=== PATIENT | female | born 1965 | race Two or more races ===

== ENCOUNTER 2017-09-07 08:44 | Emergency (ER) | payer OTHER ==
--- NOTE | 2017-09-07 09:16 | ER Document Report ---
ED Medical Screen (RME) - General TRAVEL OUTSIDE OF THE [place] 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 Patient states that she does have feelings of dyspnea when she takes a deep breath and because she feels like she has dryness in her throat. Patient states that the pain does not radiate. She has not noticed anything that makes the pain worse including p.o. intake. She does not take any medications daily. Denies any drug allergies, smoking, IV drug use, cancer history, prolonged immobilization, distance travel, recent surgery/trauma, hormone use, or previous DVT/PE. Denies any cardiac medical history. Patient states that she is still urinating normally and having normal bowel movements. No diaphoresis. Denies any headache, fever, neck pain, URI, sore throat, palpitations, syncope , cough, wheeze, abdominal pain, nausea/vomiting/diarrhea, urinary retention, dysuria, hematuria, loss of control of bowel or bladder, numbness/tingling, or rash. (CLAUDIA CASTELLANO) - Related Data Allergies/Adverse Reactions: No Known Allergies Allergy (Unverified 09/07/17 08:49) Past Medical History - Social History Family history: Reviewed & Not Pertinent <CLAUDIA CASTELLANO - Last Filed: 09/07/17 10:00> Review of Systems - Review of Systems -: Yes All other systems reviewed and negative <CLAUDIA CASTELLANO - Last Filed: 09/07/17 10:00> Physical Exam <MIRIAM HERNANDEZ - Last Filed: 09/07/17 09:15> <CLAUDIA CASTELLANO - Last Filed: 09/07/17 10:00> - Vital signs Vitals: Temp Pulse Resp BP Pulse Ox 98.5 F 90 20 149/81 H 100 09/07/17 08:51 09/07/17 08:51 09/07/17 08:51 09/07/17 08:51 09/07/17 08:51 - Notes Notes: PHYSICAL EXAMINATION: GENERAL: Well-appearing, well-nourished and in no acute distress. HEAD: Atraumatic, normocephalic. EYES: Pupils equal round and reactive to light, extraocular movements intact, sclera anicteric, conjunctiva are normal. ENT: Nares patent and without discharge. oropharynx clear without exudates. No tonsilar hypertrophy or erythema. Moist mucous membranes. NECK: Normal range of motion, supple without lymphadenopathy Chest: + reproducible tenderness to the inferior sternal area. No flail chest. LUNGS: Breath sounds clear to auscultation bilaterally and equal. No wheezes rales or rhonchi. HEART: Regular rate and rhythm without murmurs, rubs, gallops. ABDOMEN: Soft, nontender, nondistended abdomen. No guarding, no rebound. No masses appreciated. Normal bowel sounds present. No CVA tenderness bilaterally. Musculoskeletal: FROM to passive/active. Strength 5+/5. Blanka neg. No asymmetry Extremities: No cyanosis, clubbing, or edema b/l. Peripheral pulses 2+. Capillary refill less than 3 seconds. NEUROLOGICAL: Normal speech, normal gait. PSYCH: Normal mood, normal affect. SKIN: Warm, Dry, normal turgor, no rashes or lesions noted. (CLAUDIA CASTELLANO) - Vital Signs Vital signs: Temp Pulse Resp BP Pulse Ox 98.5 F 90 20 149/81 H 100 09/07/17 08:51 09/07/17 08:51 09/07/17 08:51 09/07/17 08:51 09/07/17 08:51 Doctor's Discharge <MIRIAM HERNANDEZ - Last Filed: 09/07/17 09:15> <CLAUDIA CASTELLANO - Last Filed: 09/07/17 10:00> - Discharge Referrals: CAROLINE DUNNE PA-C [Primary Care Provider] - Follow up as needed
[2017-09-07 10:05] LABS: ABSOLUTE LYMPHOCYTES (AUTO) 1.9 10^3/uL (0.5-4.7); ABSOLUTE MONOCYTES (AUTO) 0.4 10^3/uL (0.1-1.4); ABSOLUTE NEUT (AUTO) 3.6 10^3/uL (1.7-8.2); BASOPHILS % (AUTO) 0.5 % (0-2); EOSINOPHILS % (AUTO) 0.5 % (0-6); HEMATOCRIT 43.2 % (36.0-47.0); HEMOGLOBIN 14.5 g/dL (12.0-15.5); LYMPHOCYTES % (AUTO) 31.8 % (13-45); MEAN CORPUSCULAR HGB CONC 33.5 g/dL (32.0-36.0); MEAN CORPUSCULAR VOLUME 87 fl (80-97); MONOCYTES % (AUTO) 6.3 % (3-13); PLATELET COUNT 263 10^3/uL (150-450); RED CELL DISTRIBUTION WIDTH 12.7 % (11.5-14.0); SEGMENTED NEUTROPHILS % (AUTO) 60.9 % (42-78); TOTAL CELLS COUNTED % (AUTO) 100 %; WHITE BLOOD COUNT 5.9 10^3/uL (4.0-10.5)
--- NOTE | 2017-09-07 10:14 | RADIOLOGY REPORT (SQ) ---
EXAM DESCRIPTION: CHEST SINGLE VIEW COMPLETED DATE/TIME: 09/07/2017 9:57 am REASON FOR STUDY: sob COMPARISON: None. EXAM PARAMETERS: NUMBER OF VIEWS: One view. TECHNIQUE: Single frontal radiographic view of the chest acquired. RADIATION DOSE: NA LIMITATIONS: None. FINDINGS: LUNGS AND PLEURA: No opacities, masses or pneumothorax. No pleural effusion. MEDIASTINUM AND HILAR STRUCTURES: No masses. Contour normal. HEART AND VASCULAR STRUCTURES: Heart normal in size. Normal vasculature. BONES: No acute findings. HARDWARE: None in the chest. OTHER: No other significant finding. IMPRESSION: NO ACUTE RADIOGRAPHIC FINDING IN THE CHEST. TECHNICAL DOCUMENTATION: JOB ID: [id number] [employer]- All Rights Reserved Reading location - IP/workstation name: [email or web address]
[2017-09-07 10:29] LABS: ALANINE AMINOTRANSFERASE 28 U/L (9-52); ALBUMIN 4.2 g/dL (3.5-5.0); ALKALINE PHOSPHATASE 52 U/L (38-126); ANION GAP 12 (5-19); ASPARTATE AMINO TRANSFERASE 39 U/L (14-36); BILIRUBIN,DIRECT 0.2 mg/dL (0.0-0.4); BILIRUBIN,TOTAL 1.4 mg/dL (0.2-1.3); BLOOD UREA NITROGEN 14 mg/dL (7-20); CALCIUM 9.5 mg/dL (8.4-10.2); CARBON DIOXIDE 22 mmol/L (22-30); CHLORIDE 110 mmol/L (98-107); CREATINE KINASE 115 U/L (30-135); GLUCOSE 116 mg/dL (75-110); POTASSIUM 3.7 mmol/L (3.6-5.0); SODIUM 143.6 mmol/L (137-145); TOTAL PROTEIN 7.2 g/dL (6.3-8.2)
[2017-09-07 10:41] LABS: CREATINE KINASE MB 1.91 ng/mL (<4.55)
[2017-09-07 10:46] LABS: TROPONIN I < 0.012 ng/mL
[2017-09-07] MEDS ORDERED: LIDOCAINE 5% (700 MG) TRANSDERMAL ADH..PATCH TP ONE (11:59)
[2017-09-07] MEDS ORDERED: KETOROLAC TROMETHAMINE INJ/PF 30 MG/1 ML SDV IV ONE (12:00)
[2017-09-07] MEDS ORDERED: LORAZEPAM INJ 2 MG/1 ML VIAL IV ONE (12:00)
--- NOTE | 2017-09-07 12:11 | ER Document Report ---
ED General - General Chief Complaint: Shortness Of Breath Stated Complaint: NECK PAIN, TINGLING FEELING IN BODY Time Seen by Provider: 09/07/17 09:16 TRAVEL OUTSIDE OF THE [place] 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 Patient states that she does have feelings of dyspnea when she takes a deep breath and because she feels like she has dryness in her throat. Patient states that the pain does not radiate. She has not noticed anything that makes the pain worse including p.o. intake. She does not take any medications daily. Denies any drug allergies, smoking, IV drug use, cancer history, prolonged immobilization, distance travel, recent surgery/trauma, hormone use, or previous DVT/PE. Denies any cardiac medical history. Patient states that she is still urinating normally and having normal bowel movements. No diaphoresis. Denies any headache, fever, neck pain, URI, sore throat, palpitations, syncope, cough, wheeze, abdominal pain, nausea/vomiting/diarrhea, urinary retention, dysuria, hematuria, loss of control of bowel or bladder, numbness/tingling, or rash. - Related Data Allergies/Adverse Reactions: No Known Allergies Allergy (Unverified 09/07/17 08:49) Past Medical History - Social History Smoking Status: Never Smoker Chew tobacco use (# tins/day): No Frequency of alcohol use: None Drug Abuse: None Family History: Reviewed & Not Pertinent Patient has suicidal ideation: No Patient has homicidal ideation: No Renal/ Medical History: Denies: Hx Peritoneal Dialysis Review of Systems - Review of Systems -: Yes All other systems reviewed and negative Physical Exam - Vital signs Vitals: Temp Pulse Resp BP Pulse Ox 98.5 F 90 20 149/81 H 100 09/07/17 08:51 09/07/17 08:51 09/07/17 08:51 09/07/17 08:51 09/07/17 08:51 - Notes Notes: PHYSICAL EXAMINATION: GENERAL: Well-appearing, well-nourished and in no acute distress. HEAD: Atraumatic, normocephalic. EYES: Pupils equal round and reactive to light, extraocular movements intact, sclera anicteric, conjunctiva are normal. ENT: Nares patent and without discharge. oropharynx clear without exudates. No tonsilar hypertrophy or erythema. Moist mucous membranes. NECK: Normal range of motion, supple without lymphadenopathy Chest: + reproducible tenderness to the inferior sternal area. No flail chest. LUNGS: Breath sounds clear to auscultation bilaterally and equal. No wheezes rales or rhonchi. HEART: Regular rate and rhythm without murmurs, rubs, gallops. ABDOMEN: Soft, nontender, nondistended abdomen. No guarding, no rebound. No masses appreciated. Normal bowel sounds present. No CVA tenderness bilaterally. Musculoskeletal: FROM to passive/active. Strength 5+/5. Blanka neg. No asymmetry Extremities: No cyanosis, clubbing, or edema b/l. Peripheral pulses 2+. Capillary refill less than 3 seconds. NEUROLOGICAL: Normal speech, normal gait. PSYCH: anxious, normal affect. SKIN: Warm, Dry, normal turgor, no rashes or lesions noted. Course - Re-evaluation Re-evalutation: 09/07/17 14:00 Patient is an afebrile, well-hydrated 51-year-old female who presents to the ED with atypical chest pain and chest wall pain. Vitals are acceptable without any significant tachycardia, tachypnea, or hypoxia. PE is otherwise unremarkable aside from the reproducible lower chest wall tenderness. Patient is nontoxic-appearing and is tolerating p.o. without any difficulties. Pt is currently asymptomatic. Her symptoms have greatly improved with a lidoderm patch, ativan, and toradol. CBC, CMP, EKG/cardiac enzymes 2, chest x-ray, d- dimer are all unremarkable for any acute pathology. Patient has a heart score of 2, Wells score of 0, and is PERC negative aside from her age which lead to the d-dimer being ordered in triage. Patient does not have any chest pain, dyspnea, or shortness of breath at this time. Patient's presentation and symptomatology creates low suspicion for ACS, PE, pneumothorax, pericarditis, dissection, respiratory compromise, severe dehydration, sepsis, meningitis, acute intracranial pathology, or other systemic emergent condition at this time. Patient is aware that this condition can change from initial presentation and she needs to monitor symptoms closely and seek medical attention for any acute changes. Pt is feeling better and would like to go home. Rx for vistaril. Recommend conservative measures for symptoms. Recheck with your PCM in 2-3 days. Consider consult with Cardiology. Return to the ED with any worsening/concerning symptoms otherwise as reviewed in discharge. Patient is in agreement. - Vital Signs Vital signs: Temp Pulse Resp BP Pulse Ox 98.5 F 90 19 142/77 H 100 09/07/17 08:51 09/07/17 08:51 09/07/17 11:00 09/07/17 10:01 09/07/17 11:00 - Laboratory Result Diagrams: 09/07/17 09:50 09/07/17 09:50 Laboratory results interpreted by me: 09/07/17 09:50 Chloride 110 H Glucose 116 H Total Bilirubin 1.4 H AST 39 H Discharge - Discharge Clinical Impression: Chest wall pain, Anxiousness Condition: Stable Disposition: HOME, SELF-CARE Instructions: Chest Wall Pain ([facility]) Additional Instructions: Maintain adequate fluid and food intake Take home medications as directed Low sodium/fat diet Exercise regularly Monitor blood pressure daily and keep a log Monitor symptoms for any acute changes Recheck with your PCM in 2-3 days Consider a follow-up with cardiology Return to the ED with any worsening symptoms and/or development of fever, headache, chest pain, palpitations, syncope, shortness of breath, trouble breathing, abdominal pain, n/v/d, blood in stool/urine, loss of control of bowel /bladder, urinary retention, muscle weakness/paralysis, numbness/tingling, or other worsening symptoms that are concerning to you. Prescriptions: Hydroxyzine HCl 25 mg PO TID PRN #15 tablet PRN Reason: Lidocaine [Lidoderm] 1 each TP DAILY #30 adh..patch Forms: Elevated Blood Pressure Referrals: CAROLINE DUNNE PA-C [COMMUNITY BASED STAFF] - 09/10/17 YENY SANCHEZ MD [ACTIVE STAFF] - Follow up as needed
[2017-09-07 14:04] VITALS: BP 119/82
--- NOTE | 2017-09-07 18:17 | EKG REPORT ---
SEVERITY:- NORMAL ECG - SINUS RHYTHM : Confirmed by: Harmony Stanley 07-Sep-2017 18:16:33
== END 2017-09-07 14:43 | disposition home or self-care (01) ==
LOC: ER 08:44
DX: R07.89 Other chest pain (principal); R06.02 Shortness of breath; F41.1 Generalized anxiety disorder
CPT/HCPCS: 93005; 99284; 96374; 96375; 36415; 82553; 82550; 85025; 80053; 84484; 85379; 71045; 93010; J1885; J2060

== ENCOUNTER 2018-02-13 20:45 | Emergency (ER) | payer OTHER ==
[2018-02-13] MEDS ORDERED: DEXAMETHASONE SOD PHOS INJ 10 MG/1 ML VIAL IM ONE (23:06)
[2018-02-13] MEDS ORDERED: IBUPROFEN 600 MG TABLET PO ONE (23:06)
--- NOTE | 2018-02-13 23:09 | ER Document Report ---
HPI - HPI Patient complains to provider of: sore throat, flank pain Pain Level: 3 Context: Patient is a 52-year-old female that comes to the emergency room for chief complaint of 3 days of sore throat, she is also developed a fever at home several times, she states that while she is running a fever he feels pain in her flank. She has had some urinary frequency but no dysuria. She denies abdominal pain, vomiting, cough, shortness of breath, headache, congestion. She is very healthy, she takes citalopram for anxiety, she has had tonsillectomy, she denies medical history otherwise. 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 - REPRODUCTIVE Reproductive: DENIES: : <SAGE ESPITIA - Last Filed: 02/14/18 06:36> <JULY WOOD - Last Filed: 02/16/18 08:31> - HPI Time Seen by Provider: 02/13/18 22:48 Past Medical History - General Information source: Patient - Social History Smoking Status: Never Smoker Frequency of alcohol use: None Drug Abuse: None Lives with: Family Family History: Reviewed & Not Pertinent - Medical History Medical History: Negative Renal/ Medical History: Denies: Hx Peritoneal Dialysis Surgical Hx: Negative - Immunizations Immunizations up to date: Yes Hx Diphtheria, Pertussis, Tetanus Vaccination: Yes <SAGE ESPITIA - Last Filed: 02/14/18 06:36> Vertical Provider Document - CONSTITUTIONAL General Appearance: WD/WN, No Apparent Distress - INFECTION CONTROL TRAVEL OUTSIDE OF THE [place] IN LAST 30 DAYS: No - HEENT HEENT: Atraumatic, Normocephalic. negative: Normal ENT Exam - Erythematous rash over the posterior pharynx, there appears to be adenoid tissue on the lower aspect which has exudates on it. There is no evidence of her tonsils noted. Uvula is normal other than a small amount of rash, there is no swelling to this. Patent airway. Unremarkable ENT exam otherwise. - NECK Neck: Other - Bilateral lymphadenopathy, worse on the left. No submandibular cellulitis or nuchal rigidity - RESPIRATORY Respiratory: Breath Sounds Normal, No Respiratory Distress - CARDIOVASCULAR Cardiovascular: Regular Rate, Regular Rhythm - GI/ABDOMEN Gastrointestinal: Abdomen Soft, Abdomen Non-Tender - BACK Back: Normal Inspection - MUSCULOSKELETAL/EXTREMETIES Musculoskeletal/Extremeties: MAEW, FROM, Non-Tender - NEURO Level of Consciousness: Awake, Alert, Appropriate - DERM Integumentary: Warm, Dry, No Rash <SAGE ESPITIA - Last Filed: 02/14/18 06:36> Course - Re-evaluation Re-evalutation: Patient's physical examination is consistent with strep pharyngitis despite tonsillectomy. She has lymphadenopathy but no evidence of Prudencio's angina. Patent airway. No signs of distress. Positive strep pharyngitis test. Discussed options with patient, she prefers to be treated with penicillin G IM. Given dexamethasone. Urinalysis unremarkable. Discussed expectations, follow-u p, return precautions. Patient states understanding and agreement. - Vital Signs Vital signs: Temp Pulse Resp BP Pulse Ox 98.6 F 101 H 18 144/74 H 97 02/13/18 20:51 02/13/18 20:51 02/13/18 20:51 02/13/18 20:51 02/13/18 20:51 <SAGE ESPITIA - Last Filed: 02/14/18 06:36> - Vital Signs Vital signs: Temp Pulse Resp BP Pulse Ox 98.7 F 98 18 138/74 H 100 02/14/18 00:25 02/14/18 00:25 02/14/18 00:25 02/14/18 00:25 02/14/18 00:25 - Laboratory Laboratory results interpreted by me: 02/13/18 23:06 Urine Ketones TRACE H Urine Ascorbic Acid 40 H <JULY WOOD - Last Filed: 02/16/18 08:31> Discharge <SAGE ESPITIA - Last Filed: 02/14/18 06:36> <JULY WOOD - Last Filed: 02/16/18 08:31> - Discharge Clinical Impression: Strep throat, Lymphadenopathy Fever Qualifiers: Fever type: unspecified Qualified Code(s): R50.9 - Fever, unspecified Condition: Stable Disposition: HOME, SELF-CARE Additional Instructions: You have strep throat infection. You have been treated for this. Take Tylenol or ibuprofen for pain/fever, drink plenty of fluids, and rest. Symptoms should resolve. While you are still running fevers you are contagious. Follow-up with primary care. Return if you worsen including difficulty swallowing, spiking fevers, or any other concerning or worsening symptoms. Forms: Return to Work Referrals: MEDARDO ROCHA, TELEHEALTH COORDINATOR [Primary Care Provider] - Follow up as needed Cosign for MLP Consult
[2018-02-13 23:23] LABS: APPEARANCE,URINE CLEAR; BILIRUBIN,URINE NEGATIVE (NEGATIVE); COLOR,URINE YELLOW; GLUCOSE, URINE NEGATIVE (NEGATIVE); KETONES,URINE TRACE mg/dL (NEGATIVE); LEUKOCYTE ESTERASE,URINE NEGATIVE (NEGATIVE); NITRITE,URINE NEGATIVE (NEGATIVE); PROTEIN,URINE NEGATIVE (NEGATIVE); URINE SPECIFIC GRAVITY 1.014; UROBILINOGEN,URINE NEGATIVE mg/dL (<2.0)
[2018-02-14] MEDS ORDERED: PENICILLIN G BENZATHINE 1.2 MILLION UNIT/2 ML DISP.SYRIN IM ONE (00:08)
[2018-02-14 00:27] VITALS: BP 138/74
== END 2018-02-14 00:28 | disposition home or self-care (01) ==
LOC: ER 20:45
DX: J02.0 Streptococcal pharyngitis (principal); R50.9 Fever, unspecified; R59.0 Localized enlarged lymph nodes; R35.0 Frequency of micturition; F41.9 Anxiety disorder, unspecified; Z79.899 Other long term (current) drug therapy; Z90.89 Acquired absence of other organs
CPT/HCPCS: 99283; 96372; 87880; 81001; J0561; J1100

== ENCOUNTER 2019-10-17 09:34 | Emergency (ER) | payer OTHER ==
[2019-10-17] MEDS ORDERED: NORMAL SALINE 1000 ML 1,000 ML IV ONE (10:10)
[2019-10-17] MEDS ORDERED: ONDANSETRON 4 MG TAB.RAPDIS PO ONE (10:10)
--- NOTE | 2019-10-17 10:13 | ER Document Report ---
ED Medical Screen (RME) - General Chief Complaint: Abdominal Pain Stated Complaint: ABDOMINAL PAIN Time Seen by Provider: 10/17/19 10:09 Primary Care Provider: MEDARDO ROCHA NP [Primary Care Provider] - Follow up as needed Mode of Arrival: Ambulatory Information source: Patient Notes: 53-year-old female presented to ED for being nausea vomiting and diarrhea on Sun night Sunday morning. She states the vomiting stopped Sunday and she had a fever of 100.8 on Sunday. She states since then she has had abdominal pain and diarrhea. She states she is very bloated and does not remember ever being bloated like this. She states she is postmenopausal. I have seen her during the covid 19 pandemic will be tested. I have greeted and performed a rapid initial assessment of this patient. A comprehensive ED assessment and evaluation of the patient, analysis of test results and completion of medical decision making process will be conducted by an additional ED providers. TRAVEL OUTSIDE OF THE [place] IN LAST 30 DAYS: No - Related Data Allergies/Adverse Reactions: No Known Allergies Allergy (Unverified 09/07/17 08:49) Past Medical History - Social History Family history: Reviewed & Not Pertinent Renal/ Medical History: Denies: Hx Peritoneal Dialysis - Immunizations Immunizations up to date: Yes Hx Diphtheria, Pertussis, Tetanus Vaccination: Yes Physical Exam - Vital signs Vitals: Temp Pulse Resp BP Pulse Ox 98.5 F 90 16 144/85 H 95 10/17/19 09:44 10/17/19 09:44 10/17/19 09:44 10/17/19 09:44 10/17/19 09:44 Course - Vital Signs Vital signs: Temp Pulse Resp BP Pulse Ox 98.5 F 90 16 144/85 H 95 10/17/19 09:44 10/17/19 09:44 10/17/19 09:44 10/17/19 09:44 10/17/19 09:44 Doctor's Discharge - Discharge Referrals: MEDARDO ROCHA NP [Primary Care Provider] - Follow up as needed
[2019-10-17 11:09] LABS: ABSOLUTE MONOCYTES (AUTO) 0.5 10^3/uL (0.1-1.4); ABSOLUTE NEUT (AUTO) 5.9 10^3/uL (1.7-8.2); BASOPHILS % (AUTO) 0.4 % (0-2); EOSINOPHILS % (AUTO) 0.5 % (0-6); HEMATOCRIT 42.6 % (36.0-47.0); HEMOGLOBIN 14.2 g/dL (12.0-15.5); LYMPHOCYTES % (AUTO) 23.6 % (13-45); MEAN CORPUSCULAR HEMOGLOBIN 28.9 pg (27.0-33.4); MEAN CORPUSCULAR HGB CONC 33.4 g/dL (32.0-36.0); MEAN CORPUSCULAR VOLUME 86 fl (80-97); MONOCYTES % (AUTO) 6.4 % (3-13); PLATELET COUNT 203 10^3/uL (150-450); RED BLOOD COUNT 4.93 10^6/uL (3.72-5.28); RED CELL DISTRIBUTION WIDTH 13.4 % (11.5-14.0); SEGMENTED NEUTROPHILS % (AUTO) 69.1 % (42-78); TOTAL CELLS COUNTED % (AUTO) 100 %; WHITE BLOOD COUNT 8.5 10^3/uL (4.0-10.5)
[2019-10-17 11:11] LABS: APPEARANCE,URINE SLIGHTLY-CLOUDY; BILIRUBIN,URINE NEGATIVE (NEGATIVE); COLOR,URINE YELLOW; GLUCOSE, URINE NEGATIVE (NEGATIVE); KETONES,URINE TRACE mg/dL (NEGATIVE); PROTEIN,URINE NEGATIVE (NEGATIVE); URINE SPECIFIC GRAVITY 1.018; UROBILINOGEN,URINE NEGATIVE mg/dL (<2.0)
[2019-10-17 11:20] LABS: ALBUMIN 4.1 g/dL (3.5-5.0); ALKALINE PHOSPHATASE 59 U/L (38-126); ANION GAP 9 (5-19); ASPARTATE AMINO TRANSFERASE 24 U/L (14-36); BILIRUBIN,DIRECT 0.2 mg/dL (0.0-0.4); BILIRUBIN,TOTAL 0.6 mg/dL (0.2-1.3); BLOOD UREA NITROGEN 11 mg/dL (7-20); CALCIUM 9.4 mg/dL (8.4-10.2); CARBON DIOXIDE 26 mmol/L (22-30); CHLORIDE 105 mmol/L (98-107); GLUCOSE 118 mg/dL (75-110); POTASSIUM 4.1 mmol/L (3.6-5.0); TOTAL PROTEIN 6.8 g/dL (6.3-8.2)
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
[2019-10-17] MEDS ORDERED: LEVOFLOXACIN 750 MG/D5W RTU 750 MG/150 ML RTUPB IV ONE (12:39)
[2019-10-17] MEDS ORDERED: METRONIDAZOLE 500 MG/NS RTU 500 MG/100 ML RTUPB IV ONE (12:40)
--- NOTE | 2019-10-17 12:58 | RADIOLOGY REPORT (SQ) ---
EXAM DESCRIPTION: KUB/ABDOMEN (SINGLE VIEW) IMAGES COMPLETED DATE/TIME: 10/17/2019 12:50 pm REASON FOR STUDY: pain COMPARISON: None. NUMBER OF VIEWS: One view. TECHNIQUE: Supine radiographic image of the abdomen acquired. LIMITATIONS: None. FINDINGS: BOWEL GAS PATTERN: Normal bowel gas pattern. No dilated loops. CALCIFICATIONS: No suspicious calcifications. SOFT TISSUES: No gross mass or suggestion of organomegaly. HARDWARE: None in the abdomen. BONES: No acute fracture. No worrisome bone lesions. OTHER: No other significant finding. IMPRESSION: 1. NO RADIOGRAPHIC EVIDENCE FOR ACUTE ABDOMINAL DISEASE. TECHNICAL DOCUMENTATION: JOB ID: [id number] 2010 [employer]- All Rights Reserved Reading location - IP/workstation name: [email or web address]
[2019-10-17] MEDS ORDERED: HYDROMORPHONE HCL INJ/PF 2 MG/ML AMPULE IV ONE (13:42)
[2019-10-17] MEDS ORDERED: PROMETHAZINE HCL INJ 25 MG/1 ML VIAL IV ONE (13:42)
--- NOTE | 2019-10-17 13:58 | RADIOLOGY REPORT (SQ) ---
EXAM DESCRIPTION: CT ABD/PELVIS WITH IV ONLY IMAGES COMPLETED DATE/TIME: 10/17/2019 1:42 pm REASON FOR STUDY: colitis COMPARISON: None. TECHNIQUE: CT scan of the abdomen and pelvis performed using helical scanning technique with dynamic intravenous contrast injection. No oral contrast. Images reviewed with lung, soft tissue, and bone windows. Reconstructed coronal and sagittal MPR images reviewed. Delayed images for evaluation of the urinary system also acquired. All images stored on PACS. All CT scanners at this facility use dose modulation, iterative reconstruction, and/or weight based d osing when appropriate to reduce radiation dose to as low as reasonably achievable (ALARA). [facility]: Dose Right [facility]: CareDose [facility]: Dose Right [facility]: Teradose 4D [facility]: RegeneRx CONTRAST TYPE AND DOSE: contrast/concentration: Isovue 350.00 mmol/ml; Total Contrast Delivered: 77. 0 ml; Total Saline Delivered: 67.0 ml RENAL FUNCTION: BUN 11 creatinine 0.6 RADIATION DOSE: CT Rad equipment meets quality standard of care and radiation dose reduction techniq ues were employed. CTDIvol: 5.8 - 7.7 mGy. DLP: 675 mGy-cm.. LIMITATIONS: None. FINDINGS: LOWER CHEST: No significant findings. No nodules or infiltrates. LIVER: Normal size. No masses. No dilated ducts. SPLEEN: Normal size. No focal lesions. PANCREAS: No masses. No significant calcifications. No adjacent inflammation or peripancreatic fluid collections. Pancreatic duct not dilated. GALLBLADDER: No identified stones by CT criteria. No inflammatory changes to suggest cholecystitis. ADRENAL GLANDS: No significant masses or asymmetry. RIGHT KIDNEY AND URETER: No solid masses. No significant calcifications. No hydronephrosis or hyd roureter. LEFT KIDNEY AND URETER: No solid masses. No significant calcifications. No hydronephrosis or hydr oureter. AORTA AND VESSELS: No aneurysm. No dissection. Renal arteries, SMA, celiac without stenosis. RETROPERITONEUM: No retroperitoneal adenopathy, hemorrhage or masses. BOWEL AND PERITONEAL CAVITY: No masses or inflammatory changes. No free fluid or peritoneal masses. APPENDIX: Surgically absent. PELVIS: Normal bladder. There appears to be a 2 cm uterine fibroid. See image 67 series 5. Another partially calcified fibroid is seen in the uterine fundus. ABDOMINAL WALL: No masses. No hernias. BONES: No significant or acute findings. OTHER: No other significant finding. IMPRESSION: No acute findings in the abdomen or pelvis. Small uterine fibroids. TECHNICAL DOCUMENTATION: JOB ID: [id number] Quality ID # [id number]: Final reports with documentation of one or more dose reduction techniques (e.g., Au tomated exposure control, adjustment of the mA and/or kV according to patient size, use of iterative reconstruction technique) 2010 [employer]- All Rights Reserved Reading location - IP/workstation name: [email or web address]
[2019-10-17 17:51] VITALS: BP 146/88
[2019-10-17 19:25] LABS: C DIFFICILE GDH POSITIVE (NEGATIVE)
== END 2019-10-17 17:30 | disposition home or self-care (01) ==
LOC: ER 09:34
DX: N30.00 Acute cystitis without hematuria (principal); R19.7 Diarrhea, unspecified; R14.0 Abdominal distension (gaseous); R53.1 Weakness; Z20.828 Contact with and (suspected) exposure to other viral communicable diseases
CPT/HCPCS: 99285; 96361; 96375; 96365; 96367; 36415; 87040; 87045; 87086; 89055; 87205; 84703; 85025; 82270; 87635; 87088; 80053; 81001; 87186; 87493 ×2; 87324; 87449; 74018; 74177; S0119; J3490; J1170; J2550; J7030; J1956; C9803